=== PATIENT | female | born 1990 ===

== ENCOUNTER 2019-12-06 09:11 | Emergency (ER) | payer SELFPAY ==
[~2019-12-06] VITALS: Ht 160 cm; Wt 89.6 kg
[2019-12-06 09:14] VITALS: BP 129/62
--- NOTE | 2019-12-06 10:53 | NUR ---
PT HAS HAD SYMPTOMS SUCH ROBLERO, COLD SYMPTOMS, CP FOR 8 DAYS. NEGATIVE COVID EARLIER THIS WEEK. XRAY COMPETED AND DISCHARGE GIVEN. PT AMBULATED TO DISCHARGE WINDOW, STEADY GAIT
== END 2019-12-06 12:51 | disposition home or self-care (01) ==
LOC: ED 12:41
DX: M94.0 Chondrocostal junction syndrome [Tietze] (principal); B34.9 Viral infection, unspecified; I44.4 Left anterior fascicular block
CPT/HCPCS: 71045; 93005; 99283